=== PATIENT | male | born 1930 | race Caucasian/White ===

== ENCOUNTER 2016-08-23 14:17 | Emergency (ER) | payer MEDICARE, BC ==
[~2016-08-23] VITALS: Ht 172.7 cm; Wt 65.0 kg
[~2016-08-23 14:17] MED LIST: ASPIRIN 81M81 MG/TA2 PO; BETIMOL 2.5 ML2.5 M1 OU; CENTRUM1 TAB PO; CLEOCIN HC150 MG/CAP PO; FOLIC ACID 11 MG/TA1 PO; METHOTREXA2.5 MG/TAB PO; MULTAQ400 MG PO; MULTIPLE VITAMI1 CAP PO; PLAQUENIL 200M200 MG PO; TIMOLOL MALEATE5 M1 OU; TOPROL XL 50MG50 MG PO; VIAGRA50 M1 PO; VIAGRA50 MG PO; VITAMIN C500 MG PO; XALATAN EYE DROPS OU; ZOCOR 20MG20 MG PO
[2016-08-23 14:24] VITALS: TEMP 98.9
[2016-08-23 15:17] LABS: BASO % 0.4 % (0.0-2.0); EOS # 0.1 (0.0-0.7); EOS % 0.9 % (0-4.0); GRAN # 3.2 (1.4-6.5); GRAN % 58.7 % (42.2-75.2); HEMATOCRIT 42.9 % (42.0-52.0); HEMOGLOBIN 15.1 g/dl (13.5-18.0); LYMPH # 1.3 (1.2-3.4); LYMPH % 24.2 % (20.0-51.0); MEAN CELL VOLUME 93 fl (80.0-100.0); MEAN CORPUSCULAR HEMOGLOBIN 33 pg (27.0-31.0); MEAN CORPUSCULAR HGB CONC 35 g/dl (33.0-37.0); MEAN PLATELET VOLUME 11.4 fl (7.4-10.4); MONO # 0.9 (0.1-0.6); MONO % 15.6 % (1.7-9.3); PLATELET COUNT 122 K/mm3 (130-400); RED BLOOD COUNT 4.63 M/mm3 (4.20-5.60); REDCELL DISTRIBUTION WIDTH-CV 13.8 % (11.5-14.5); WHITE BLOOD COUNT 5.5 K/mm3 (4.8-10.8)
[2016-08-23 15:28] LABS: ADJUSTED CALCIUM 8.7 mg/dL (8.4-10.2); ALANINE AMINOTRANSFERASE 32 U/L (21-72); ALBUMIN 4.1 gm/dL (3.5-5.0); ALKALINE PHOSPHATASE 48 U/L (50-136); ANION GAP 11 mmol/L (7-16); BILIRUBIN,TOTAL 1.4 mg/dL (0.0-1.0); BLOOD UREA NITROGEN 22 mg/dL (9-20); CALCIUM 8.8 mg/dL (8.4-10.2); CARBON DIOXIDE 26 mmol/L (22-30); CHLORIDE 101 mmol/L (98-107); CREATININE, serum 0.83 mg/dL (0.66-1.25); GLUCOSE 128 mg/dL (74-106); POTASSIUM 4.1 mmol/L (3.4-5.0); SODIUM 138 mmol/L (137-145); TOTAL PROTEIN 7.2 gm/dL (6.4-8.2)
[2016-08-23 15:33] LABS: C-REACTIVE PROTEIN < 0.5 mg/dL (0.0-0.9)
[2016-08-23 15:42] LABS: ERYTHROCYTE SEDIMENTATION RATE 1 mm/hr (0-30)
[2016-08-23] MEDS ORDERED: NORCO 325 MG-51 TAB PO (16:17)
[2016-08-23 16:19] VITALS: BP 126/80; PULSE 60
== END 2016-08-23 16:32 | disposition home or self-care (01) ==
LOC: COL.ER 14:17
PROVIDERS: Physician Assistant
DX: M79.604 Pain in right leg (principal); M06.9 Rheumatoid arthritis, unspecified; Z85.46 Personal history of malignant neoplasm of prostate; I48.91 Unspecified atrial fibrillation

== ENCOUNTER → 2017-08-10 | Outpatient (CLI) | payer MEDICARE, BC ==
[~2017-08-10] MED LIST changes: +NORCO 325 MG-51 TAB PO
== END ==
LOC: COL.RAD 08:04
DX: I71.4 Abdominal aortic aneurysm, without rupture (principal); R93.41 Abnormal radiologic findings on diagnostic imaging of renal pelvis, ureter, or bladder; R63.4 Abnormal weight loss
CPT/HCPCS: Q9967